=== PATIENT | male | born 1985 | race American Indian/Alaskan Native ===

== ENCOUNTER 2016-07-04 23:56 | Inpatient (IN) | payer BC ==
[2016-07-05 00:38] VITALS: BMI 32.7
[2016-07-05] MEDS ORDERED: metroNIDAZOLE IV 500 mg/100 ml 100 ML IVPB STA (00:59)
[2016-07-05] MEDS ORDERED: Piperacill/Tazo 4.5gm in NS 100 ML IVPB STA (00:59)
--- NOTE | 2016-07-05 01:09 | ED PDOC ---
Arrival/HPI - General Chief Complaint: Fever Time Seen by Provider: 07/05/16 00:33 Historian: Patient - History of Present Illness Narrative History of Present Illness (Text): 07/05/16 01:00 Ash Drew is a 30 year old male, with a history of ALS, presents to the emergency department complaining of fever which developed tonight. Patient states that a peg tube was recently placed 6 days ago at [facility] and notes of pain to the surrounding area. Patient is still able to tolerate PO intake. Denies headache, dizziness, chest pain, nausea, vomiting , diarrhea, urinary symptoms or any other complaints at this time. Time/Duration: 4-6 hours Symptom Onset: Gradual Symptom Course: Unchanged Severity Level: Mild Activities at Onset: Light Context: Home Past Medical History - Provider Review Nursing Documentation Reviewed: Yes - Infectious Disease Hx of Infectious Diseases: None - Tetanus Immunization Tetanus Immunization: Unknown - Past Medical History Past Medical History: No Previous - Cardiac Hx Cardiac Disorders: No - Pulmonary Hx Respiratory Disorders: No - Neurological Hx Neurological Disorder: Yes Other/Comment: ALS - HEENT Hx HEENT Disorder: No - Renal Hx Renal Disorder: No - Endocrine/Metabolic Hx Endocrine Disorders: No - Hematological/Oncological Hx Blood Disorders: No - Integumentary Hx Dermatological Disorder: No - Musculoskeletal/Rheumatological Hx Musculoskeletal Disorders: No - Gastrointestinal Hx Gastrointestinal Disorders: No - Genitourinary/Gynecological Hx Genitourinary Disorders: No - Psychiatric Hx Psychophysiologic Disorder: No Hx Depression: No Hx Emotional Abuse: No Hx Physical Abuse: No Hx Substance Use: No - Past Surgical History Past Surgical History: No Previous - Anesthesia Hx Anesthesia: No - Suicidal Assessment Feels Threatened In Home Enviroment: No Family/Social History - Physician Review Nursing Documentation Reviewed: Yes Family/Social History: No Known Family HX Smoking Status: Never Smoked Hx Alcohol Use: No Hx Substance Use: No Hx Substance Use Treatment: No Allergies/Home Meds Allergies/Adverse Reactions: Allergies No Known Allergies Allergy (Verified 01/17/16 00:36) Home Medications: Home Meds Medication Instructions Recorded Confirmed Baclofen [Baclofen] 1 tab PO TID 01/17/16 01/17/16 Calcium 1 tab PO BID 07/05/16 07/05/16 Dextromethorphan HBr/Quinidine 1 tab PO BID 07/05/16 07/05/16 [Nuedexta 20-10 mg Capsule] Eliquis 1 tab PO BID 07/05/16 07/05/16 Fish Oil 1 tab PO BID 07/05/16 07/05/16 Magnesium 1 tab PO HS 07/05/16 07/05/16 Riluzole 1 tab PO BID 07/05/16 07/05/16 Vitamin B12 1 tab PO DAILY 07/05/16 07/05/16 Review of Systems - Physician Review All systems were reviewed & negative as marked: Yes - Review of Systems Constitutional: Fevers Respiratory: absent: SOB, Cough Cardiovascular: absent: Chest Pain Gastrointestinal: Abdominal Pain (pain around the peg tube ). absent: Diarrhea , Nausea, Vomiting Neurological: Normal. absent: Headache, Dizziness Psychiatric: Normal Physical Exam Vital Signs Reviewed: Yes Vital Signs Temp Pulse Resp BP Pulse Ox 07/05/16 03:47 100.4 F H 101 H 20 153/92 H 07/05/16 03:38 100.8 F H 102 H 28 H 125/76 100 07/05/16 02:40 101.9 F H 102 H 18 121/81 99 07/05/16 00:37 101.7 F H 110 H 18 121/91 H 98 Temperature: Febrile Blood Pressure: Normal Pulse: Tachycardic Respiratory Rate: Normal Appearance: Positive for: Non-Toxic Pain Distress: None Mental Status: Positive for: Alert and Oriented X 3 - Systems Exam Head: Present: Atraumatic, Normocephalic Pupils: Present: PERRL Extroacular Muscles: Present: EOMI Conjunctiva: Present: Normal Respiratory/Chest: Present: Clear to Auscultation, Good Air Exchange. No: Respiratory Distress, Accessory Muscle Use Cardiovascular: Present: Regular Rate and Rhythm, Normal S1, S2. No: Murmurs Abdomen: Present: Tenderness (tender around the peg tube), Normal Bowel Sounds. No: Distention, Peritoneal Signs Upper Extremity: Present: Normal Inspection. No: Cyanosis, Edema Lower Extremity: Present: Normal Inspection. No: Edema Neurological: Present: GCS=15, CN II-XII Intact, Speech Normal Skin: Present: Warm, Dry, Normal Color. No: Rashes Psychiatric: Present: Alert, Oriented x 3, Normal Insight, Normal Concentration Medical Decision Making ED Course and Treatment: 07/05/16 01:12 Impression: A 30 year old male who presents to the emergency department complaining of fever and pain around the peg tube. Plan: -- Labs -- CT abdomen pelvis -- Chest X-ray -- Tylenol -- Zosyn -- Blood culture -- Urine culture -- Urinalysis -- Reassess and disposition Progress Notes: 07/05/16 03:14 EKG reviewed by me: Sinus Tachycardia @ 101 bpm. Normal [place]. Normal interval. CT abdomen pelvis results reviewed Impression: No acute findings. 07/05/16 04:[address] Rachel who is aware and agrees with the plan to admit patient to hospital. Accepts patient under her service. - Lab Interpretations Microbiology Results: Microbiology Results 07/05/16 01:50 Blood Blood Culture - Preliminary NO GROWTH AFTER 4 DAYS 07/05/16 01:20 Blood Blood Culture - Preliminary NO GROWTH AFTER 4 DAYS 07/05/16 02:01 Urine,Clean Catch Urine Culture - Final No Growth (<1,000 CFU/ML) Lab Results: 07/05/16 01:50 07/05/16 01:50 Lab Results 07/05/16 02:01: Urine Color Yellow, Urine Appearance Sl cloudy, Urine pH 6.0, Ur Specific [place] 1.025, Urine Protein 30 H, Urine Glucose (UA) Negative, Urine Ketones Negative, Urine Blood Trace-intact H, Urine Nitrate Negative, Urine Bilirubin Negative, Urine Urobilinogen 0.2, Ur Leukocyte Esterase Negative , Urine RBC 1 - 3, Urine WBC 0 - 2, Ur Epithelial Cells 0 - 2, Urine Bacteria Rare 07/05/16 01:50: WBC 13.4 H, RBC 5.86, Hgb 13.9 L, Hct 42.0, MCV 71.7 L, MCH 23.7 L, MCHC 33.1, RDW 14.7 H, Plt Count 223, MPV 10.0, Gran % 78.6 H, Lymph % ( Auto) 14.7 L, [place] % (Auto) 6.4 H, Eos % (Auto) 0.2 L, Baso % (Auto) 0.1, Gran # 10.56 H, Lymph # 2.0, [place] # 0.9 H, Eos # 0.0, Baso # 0.02, PT 11.0, INR 1.02 , APTT 27.8, pO2 49, VBG pH 7.37, VBG pCO2 48.0, VBG HCO3 27.7, VBG Total CO2 29.2 H, VBG O2 Sat (Calc) 88.4 H, VBG Base Excess 1.7, VBG Potassium 4.3, Glucose 111 H, Lactate 2.2 H, FiO2 21.0, Sodium 138.0, Potassium 4.2, Chloride 103.0, Carbon Dioxide 25, Anion Gap 17, BUN 13, Creatinine 1.0, Est GFR ( Amer) > 60, Est GFR (Non-Af Amer) > 60, Random Glucose 109, Calcium 9.2 , Phosphorus 3.8, Magnesium 1.5 L, Total Bilirubin 0.8, AST 28, ALT 40, Alkaline Phosphatase 76, Total Protein 8.1, Albumin 4.3, Globulin 3.8, Albumin/ Globulin Ratio 1.1, Venous Blood Potassium 4.3 I have reviewed the lab results: Yes - RAD Interpretation Narrative RAD Interpretations (Text): EXAM: CT Abdomen and Pelvis Without Intravenous Contrast. FINDINGS: Lower thorax: No acute findings. ABDOMEN: Liver: No acute findings. Gallbladder and bile ducts: No acute findings. No calcified stones. No ductal dilation. Pancreas: No acute findings. No ductal dilation. Spleen: No acute findings. No splenomegaly. Adrenals: No acute findings. No mass. Kidneys and ureters: No acute findings. No obstructing stones. No hydronephrosis. Stomach and bowel: There is a percutaneous gastrostomy tube. No obstruction. No mucosal thickening. Appendix: No findings to suggest acute appendicitis. PELVIS: Bladder: No acute findings. No stones. Reproductive: No acute findings. ABDOMEN and PELVIS: Intraperitoneal space: No acute findings. No free air. No significant fluid collection. Bones/joints: No acute fracture. No dislocation. Soft tissues: No acute findings. Vasculature: No acute findings. No abdominal aortic aneurysm. Lymph nodes: No acute findings. No enlarged lymph nodes. IMPRESSION: No acute findings. Radiology Orders: 07/05/16 00:59 CHEST PORTABLE [RAD] Stat 07/05/16 01:04 ABD & PELVIS W/O PO OR IV CONT [CT] Stat Hospital Carrier: Radiologist - EKG Interpretation Interpreted by ED Physician: Yes Type: 12 lead EKG - Medication Orders Current Medication Orders: Discontinued Medications Acetaminophen (Tylenol 325mg Tab) 975 mg PO ONCE PRN PRN Reason: Fever >100.4 F Last Admin: 07/05/16 01:37 Dose: 975 MG MAR Pain/Vitals Document 07/05/16 01:37 OCS (Rec: 07/05/16 01:38 OCS [id number]) Pain Reassessment Is This A Pain ReAssessment? Yes Sleep Is patient sleeping during reassessment? No Presence of Pain Presence of Pain Yes Pain Scale Used Pain Scale Used Numeric Location Pain Location Body Site Abdomen Description Constant Intensity 4 Scale Used Numeric Acetaminophen (Tylenol 325mg Tab) 650 mg PO Q4H PRN PRN Reason: Fever >100.5 F Last Admin: 07/07/16 06:15 Dose: 650 MG MAR Pain/Vitals Document 07/07/16 06:15 [email or web address] (Rec: 07/07/16 06:16 [email or web address] [facility] [id number] ) Vitals Temperature (97.6 F-99.6 F) 100.4 F Temperature Source Oral Apixaban (Eliquis) 5 mg PO DAILY JEY Last Admin: 07/05/16 10:02 Dose: 5 MG Apixaban (Eliquis) 5 mg PO BID JEY PRN Reason: Protocol Last Admin: 07/06/16 17:39 Dose: 5 MG Baclofen (Lioresal) 10 mg PO TID JEY Last Admin: 07/09/16 11:00 Dose: 10 MG Cefpodoxime Proxetil (Vantin) 200 mg PO Q12 JEY PRN Reason: Protocol Stop: 07/14/16 22:01 Doxycycline Hyclate (Doryx) 100 mg PO Q12 JEY PRN Reason: Protocol Stop: 07/14/16 22:01 Metronidazole (Flagyl) 100 mls @ 100 mls/hr IVPB STAT STA PRN Reason: Protocol Stop: 07/05/16 01:58 Last Admin: 07/05/16 02:26 Dose: 100 MLS/HR eMAR Start Stop Document 07/05/16 02:26 OCS (Rec: 07/05/16 02:26 OCS [id number]) Intravenous Solution Start Date 07/05/16 Start Time 02:26 Piperacillin Sod/Tazobactam Sod (Zosyn 4.5 Gm In Ns 100ml) 100 mls @ 200 mls/ hr IVPB STAT STA PRN Reason: Protocol Stop: 07/05/16 01:28 Last Admin: 07/05/16 01:57 Dose: 200 MLS/HR eMAR Start Stop Document 07/05/16 01:57 OCS (Rec: 07/05/16 01:57 OCS [id number]) Intravenous Solution Start Date 07/05/16 Start Time 01:57 Sodium Chloride (Sodium Chloride 0.9%) 1,000 mls @ 100 mls/hr IV .Q10H STA Stop: 07/05/16 13:34 Last Admin: 07/05/16 04:37 Dose: 100 MLS/HR eMAR Start Stop Document 07/05/16 04:37 DC (Rec: 07/05/16 04:37 DC [id number]) Intravenous Solution Start Date 07/05/16 Start Time 04:15 Vancomycin HCl (Vancomycin 1gm) 250 mls @ 167 mls/hr IVPB Q12H JEY PRN Reason: Protocol Last Admin: 07/09/16 10:59 Dose: 167 MLS/HR eMAR Start Stop Document 07/09/16 10:59 DLL (Rec: 07/09/16 11:00 DLL [id number]) Intravenous Solution Start Date 07/09/16 Start Time 10:59 End Date 07/09/16 End time 12:30 Total Infusion Time 91 Piperacillin Sod/Tazobactam Sod (Zosyn 3.375 In Ns 100ml) 100 mls @ 200 mls/hr IVPB Q6 JEY PRN Reason: Protocol Stop: 07/12/16 12:01 Last Admin: 07/06/16 05:50 Dose: 200 MLS/HR eMAR Start Stop Document 07/06/16 05:50 [email or web address] (Rec: 07/06/16 05:50 [email or web address] [facility] [id number]) Intravenous Solution Start Date 07/06/16 Start Time 05:50 End Date 07/06/16 End time 06:20 Total Infusion Time 30 Ceftriaxone Sodium (Rocephin 1 Gram Ivpb) 100 mls @ 100 mls/hr IVPB DAILY JEY PRN Reason: Protocol Last Admin: 07/05/16 10:05 Dose: 100 MLS/HR eMAR Start Stop Document 07/05/16 10:05 ML (Rec: 07/05/16 10:05 ML [id number]) Intravenous Solution Start Date 07/05/16 Start Time 10:05 End Date 07/05/16 End time 11:00 Total Infusion Time 55 Magnesium Sulfate/Dextrose (Magnesium Sulfate 1 Gm/100 Ml D5w) 100 mls @ 100 mls/hr IV ONCE ONE Stop: 07/05/16 13:30 Last Admin: 07/05/16 13:58 Dose: 100 MLS/HR eMAR Start Stop Document 07/05/16 13:58 ML (Rec: 07/05/16 13:59 ML [id number]) Intravenous Solution Start Date 07/05/16 Start Time 13:59 End Date 07/05/16 End time 14:45 Total Infusion Time 46 Meropenem 1 gm/ Sodium (Chloride) 100 mls @ 100 mls/hr IVPB Q8 JEY PRN Reason: Protocol Stop: 07/13/16 09:31 Last Admin: 07/07/16 05:34 Dose: 100 MLS/HR eMAR Start Stop Document 07/07/16 05:34 [email or web address] (Rec: 07/07/16 05:34 [email or web address] [id number] ) Intravenous Solution Start Date 07/07/16 Start Time 05:34 End Date 07/07/16 End time 06:35 Total Infusion Time 61 Meropenem 1g/NS 100mL IVPB (Meropenem 1g/Ns 100ml Ivpb) 100 mls @ 100 mls/hr IVPB Q8 JEY PRN Reason: Protocol Stop: 07/13/16 09:31 Last Admin: 07/09/16 05:34 Dose: 100 MLS/HR eMAR Start Stop Document 07/09/16 05:34 SJM (Rec: 07/09/16 05:34 SJM [id number]) Intravenous Solution Start Date 07/09/16 Start Time 05:34 End Date 07/09/16 End time 06:34 Total Infusion Time 60 Ibuprofen (Motrin Tab) 400 mg PO ONCE STA Stop: 07/05/16 02:53 Last Admin: 07/05/16 03:06 Dose: 400 MG MAR Pain/Vitals Document 07/05/16 03:06 OCS (Rec: 07/05/16 03:06 OCS [id number]) Pain Reassessment Is This A Pain ReAssessment? Yes Sleep Is patient sleeping during reassessment? No Presence of Pain Presence of Pain Yes Pain Scale Used Pain Scale Used Numeric Re-Assess: MAR Pain/Vitals Document 07/05/16 04:06 ML (Rec: 07/05/16 09:33 ML [id number]) Pain Reassessment Is This A Pain ReAssessment? Yes Presence of Pain Presence of Pain No Ibuprofen (Motrin Tab) 400 mg PO Q8H [facility] Last Admin: 07/09/16 05:34 Dose: MAR Pain/Vitals Document 07/09/16 05:34 SJM (Rec: 07/09/16 05:34 SJM [id number]) Pain Reassessment Is This A Pain ReAssessment? No Sleep Is patient sleeping during reassessment? No Presence of Pain Presence of Pain No Magnesium Citrate (Citrate Of Mag) 300 ml PO ONCE ONE Stop: 07/06/16 18:31 Last Admin: 07/06/16 18:45 Dose: 300 ML Magnesium Citrate (Citrate Of Mag) 300 ml PO ONCE ONE Stop: 07/08/16 00:32 Last Admin: 07/08/16 01:00 Dose: 300 ML Methylnaltrexone [place] (Relistor) 8 mg SC ONCE ONE Stop: 07/07/16 20:34 Last Admin: 07/07/16 22:46 Dose: 8 MG Subcutaneous Administrations Document 07/07/16 22:46 JW (Rec: 07/07/16 22:46 [id number]) Injection Site MAR Injection Site Right Abdomen Charges for Administration # of Subcutaneous Administrations 1 Mupirocin (Bactroban Ointment) 0 gm TOP BID [facility] Last Admin: 07/09/16 11:00 Dose: 1 APPLIC Non-Formulary Medication (Calcium) 1 tab PO BID [facility] Last Admin: 07/09/16 11:01 Dose: Non-Formulary Medication (Fish Oil) 1 tab PO BID [facility] Last Admin: 07/09/16 11:01 Dose: Non-Formulary Medication (Vitamin B12) 1 tab PO DAILY [facility] Last Admin: 07/09/16 11:01 Dose: Oxycodone/Acetaminophen (Percocet 10/325 Mg Tab) 1 tab PO Q6H PRN PRN Reason: Pain, severe (8-10) Last Admin: 07/06/16 09:00 Dose: 1 TAB [facility] Pain Assessment Document 07/06/16 09:00 BIR (Rec: 07/06/16 09:52 BIR [id number]) Pain Reassessment Is this a pain reassessment? No Sleep Is patient sleeping during reassessment? No Presence of Pain Presence of Pain Yes Pantoprazole Sodium (Protonix Ec Tab) 40 mg PO BID [facility] Last Admin: 07/09/16 11:00 Dose: 40 MG Polyethylene Glycol (Miralax) 17 gm PO DAILY [facility] Last Admin: 07/09/16 11:00 Dose: 17 GM - [place] Statement The provider has reviewed the documentation as recorded by the Ilsa Rodriguez Provider Attestation: All medical record entries made by the Ilsa were at my direction and personally dictated by me. I have reviewed the chart and agree that the record accurately reflects my personal performance of the history, physical exam, medical decision making, and the department course for this patient. I have also personally directed, reviewed, and agree with the discharge instructions and disposition. Disposition/Present on Arrival - Present on Arrival Any Indicators Present on Arrival: No History of DVT/PE: No History of Uncontrolled Diabetes: No Urinary Catheter: No History of Decub. Ulcer: No History Surgical Site Infection Following: None - Disposition Have Diagnosis and Disposition been Completed?: Yes Diagnosis: Cellulitis of abdominal wall Disposition: HOSPITALIZED Disposition Time: 04:30 Condition: GOOD
[2016-07-05 02:03] LABS: ADD MANUAL DIFF? NO
[2016-07-05 02:05] LABS: BASO # 0.02 K/mm3 (0.0-2.0); BASO % 0.1 % (0.0-3.0); EOS % 0.2 % (1.5-5.0); GRAN # 10.56 (1.4-6.5); GRAN % 78.6 % (50.0-68.0); LYMPH % 14.7 % (22.0-35.0); MEAN CELL VOLUME 71.7 fL (80.0-105.0); MEAN CORPUSCULAR HEMOGLOBIN 23.7 pg (25.0-35.0); MEAN CORPUSCULAR HGB CONC 33.1 g/dl (31.0-37.0); MONO # 0.9 (0.1-0.6); MONO % 6.4 % (1.0-6.0); PLATELET COUNT 223 10^3/uL (120.0-450.0); RED CELL DISTRIBUTION WIDTH 14.7 % (11.5-14.5); WHITE BLOOD COUNT 13.4 10^3/ul (4.5-11.0)
[2016-07-05 02:08] LABS: VENOUS BLOOD GAS BASE EXCESS 1.7 mmol/L (0.0-2.0); VENOUS BLOOD PH 7.37 (7.32-7.43)
[2016-07-05 02:20] LABS: ALB/GLOB RATIO 1.1 (1.1-1.8); ALKALINE PHOSPHATASE 76 U/L (38-133); ALT/SGPT 40 U/L (7-56); AST/SGOT 28 U/L (15-59); BILIRUBIN,TOTAL 0.8 mg/dL (0.2-1.3); BLOOD UREA NITROGEN 13 mg/dL (7-21); CALCIUM 9.2 mg/dL (8.4-10.5); CARBON DIOXIDE 25 mmol/L (21-33); CHLORIDE 99 mmol/L (98-107); GFR AFRICAN-AMERICAN > 60; GLUCOSE,RANDOM 109 mg/dL (70-110); INR 1.02 (0.93-1.08); MAGNESIUM 1.5 mg/dL (1.7-2.2); PARTIAL THROMBOPLASTIN TIME 27.8 Seconds (23.7-30.8); PHOSPHOROUS 3.8 mg/dL (2.5-4.5); POTASSIUM 4.2 mmol/L (3.6-5.0); SODIUM 137 mmol/L (132-148); TOTAL PROTEIN 8.1 g/dL (5.8-8.3)
[2016-07-05 02:30] LABS: URINE BILIRUBIN NEGATIVE (NEGATIVE); URINE BLOOD TRACE-INTACT (NEGATIVE); URINE GLUCOSE (UA) NEGATIVE (NEGATIVE); URINE KETONE NEGATIVE (NEGATIVE); URINE LEUKOCYTE ESTERASE NEGATIVE Leu/uL (NEGATIVE); URINE PROTEIN 30 mg/dL (<30 mg/dL); URINE UROBILINOGEN 0.2 E.U./dL (<1 E.U./dL)
[2016-07-05 02:32] LABS: URINE APPEARANCE SL CLOUDY (CLEAR); URINE COLOR YELLOW (YELLOW)
[2016-07-05 02:57] LABS: URINE EPITHELIAL CELLS 0 - 2 /hpf (0-5)
[2016-07-05 02:58] LABS: URINE BACTERIA RARE (NEG); URINE WBC 0 - 2 /hpf (0-6)
[2016-07-05] MEDS ORDERED: Sodium Chloride 0.9% 1,000 ML IV STA (03:35)
--- NOTE | 2016-07-05 07:23 | RAD ---
HISTORY: Sepsis Patient COMPARISON: No prior. FINDINGS: LUNGS: No active pulmonary disease. PLEURA: No significant pleural effusion identified, no pneumothorax apparent. CARDIOVASCULAR: Normal. For projection OSSEOUS STRUCTURES: No significant abnormalities. VISUALIZED UPPER ABDOMEN: Normal. OTHER FINDINGS: None. IMPRESSION: No active disease.
[2016-07-05 07:46] LABS: VENOUS BLOOD GAS BASE EXCESS 2.5 mmol/L (0.0-2.0); VENOUS BLOOD PH 7.35 (7.32-7.43)
--- NOTE | 2016-07-05 09:00 | CARD ---
APPROVED REPORT EKG Measurement Heart [id number] <Conclusion> Sinus tachycardia Otherwise normal ECG
[2016-07-05] MEDS ORDERED: cefTRIAXone 1 gm 100 ML IVPB SCH (10:00)
[2016-07-05] MEDS: FISH OIL PO SCH ×2 (10:02→17:01)
[2016-07-05] MEDS: CALCIUM PO SCH ×2 (10:02→17:01)
[2016-07-05] MEDS: Vancomycin 1gm in NS 250ml 250 ML IVPB SCH ×2 (10:03→22:29)
[2016-07-05] MEDS: VITAMIN B12 PO SCH (10:05)
[2016-07-05] MEDS: Piperacillin/Tazobact 3.375 gm 100 ML IVPB SCH ×2 (11:36→17:20)
--- NOTE | 2016-07-05 12:10 | CT ---
PROCEDURE: CT Abdomen and Pelvis without intravenous contrast HISTORY: abd pain COMPARISON: None. TECHNIQUE: Technique. Contrast Dose: Radiation dose: Total exam DLP = 1429 mGy-cm. FINDINGS: LOWER THORAX: Minimal dependent atelectatic changes at both lung bases are present LIVER: Unremarkable. No gross lesion or ductal dilatation. GALLBLADDER AND BILE DUCTS: Unremarkable. PANCREAS: Unremarkable. No gross lesion or ductal dilatation. SPLEEN: Unremarkable. ADRENALS: Unremarkable. No mass. KIDNEYS AND URETERS: Unremarkable. No hydronephrosis. No solid mass. VASCULATURE: Unremarkable. No aortic aneurysm. BOWEL: Unremarkable. No obstruction. No gross mural thickening. APPENDIX: Unremarkable. Normal appendix. PERITONEUM: Unremarkable. No free fluid. No free air. LYMPH NODES: Unremarkable. No enlarged lymph nodes. BLADDER: Unremarkable. REPRODUCTIVE: Unremarkable. BONES: No acute fracture. OTHER FINDINGS: A percutaneous gastrostomy tip is in the antrum. There is asymmetrical left rectus muscle swelling surrounding the tube and central to left anterolateral subcutaneous reticulated edema with trace trace sliver like superficial perifascial fluid present. No drainable fluid collection is appreciated. No subcutaneous gas noted The appearance is consistent with a cellulitis. IMPRESSION: Percutaneous gastrostomy tip in antrum. Left anterolateral abdominal wall soft tissue changes consistent with a cellulitis/ postop changes/edema. No subcutaneous gas. No subcutaneous or intra abdominal drainable fluid collections suggested.
--- NOTE | 2016-07-05 13:11 | HP ---
HISTORY OF PRESENT ILLNESS: The patient is a 30-year-old obese male who came to Emergency Room [facility] of high-grade fever, not feeling well, generalized weakness. The patient's , who is by the [facility], states he was diagnosed with ALS almost 2 years ago and he is being treated in [facility]. Prophylactically, they had PEG placed last , almost 6 days ago. They have not been using except flushing but since yesterday they noticed some abdominal discomfort and fever, so he was brought to Emergency Room for further evaluation. No history of nausea, vomiting. No chest pain, n o shortness of breath. No urinary symptoms. PAST MEDICAL HISTORY: According to the who is by the bedside he was diagnosed 2 years ago with ALS and has been under their care. Other than that, he has no significant past medical history. ALLERGIES: He is not allergic to any medication. MEDICATIONS AT HOME: He is on B12, magnesium, fish oil. He is on Eliquis. He is on Nuedexta, calci um and baclofen. SOCIAL HISTORY: Denies smoking, drinking or alcohol use. REVIEW OF SYSTEMS: Significant for discomfort, induration and redness around the PEG site. PHYSICAL EXAMINATION: GENERAL: He is awake and alert, communicative. VITAL SIGNS: He has temperature of 101.7, pulse 110, respirations 18, blood pressure 121/91. This m orning, his temperature 98.8, pulse 89, respirations 18, blood pressure is 132/84. LUNGS: Bilateral good airflow, no rhonchi or crackle. HEART: S1, S2 audible. No murmur. ABDOMEN: Soft, has induration around his PEG site, more so on the left border, and palpable discomfo rt. NEUROLOGIC: He is awake and alert, communicative, able to communicate. No focal deficits. LABORATORY EXAM: WBC 13.4, hemoglobin 13.9, hematocrit 42, platelet of 223. PT 11.0, INR 1.02. Danielle gris: Sodium 137, potassium 4.2, chloride 99, CO2 of 25, BUN 13, creatinine 1.0, blood sugar of 10 9, magnesium 1.5. Urinalysis is unremarkable. He had CT scan of the abdomen and pelvis done that sh ows percutaneous gastrostomy, asymmetric left rectus muscle swelling surrounding the tube and left an terolateral subcutaneous reticulated edema with ____ like superficial ____ fluid present. No drainab le fluid collection is appreciated. ASSESSMENT: 1. Abdominal wall cellulitis. 2. History of amyotrophic lateral sclerosis with some slurred speech. 3. Leukocytosis. PLAN: We will continue patient on his baseline medication. He has been started on Rocephin. He is on vancomycin. He was evaluated by Dr. Vides and has been started on Zosyn. We will continue that. We will follow up his blood culture and urine culture. I discussed with the attending at [facility] and found about the situation. We will reevaluate patient in a.m. Camryn Rachel MD cc: [phone] TT: 07/05/2016 13:11:10 sn
--- NOTE | 2016-07-05 14:35 | CP.PCM.CON ---
History of Present Illness - History of Present Illness History of Present Illness: 30 year old male with PMH of Amyotrophic Lateral sclerosis, obesity with BMI 33 was brought in to [facility] because of fever which started yesterday. The patient is also complaining of some pain in the stomach, around the area of his newly-placed PEG tube. IT was placed 6 days ago at [facility]. He apparently had 2 days of soreness after the procedure but got better. He denies headache or dizziness, no rhinorrhea, no sore throat. He has occasional cough but not SOB, no chest pain, no bleeding from the PEG site, no diarrhea, no dysuria. Infectious Diseases consult is requested to further evaluate and manage. Review of Systems - Review of Systems All systems: reviewed and no additional remarkable complaints except (as per HPI ) Past Patient History - Infectious Disease Hx of Infectious Diseases: None - Tetanus Immunizations Tetanus Immunization: Unknown - Past Medical History & Family History Past Medical History?: Yes Past Family History: Reviewed and not pertinent - Past Social History Smoking Status: Never Smoked Alcohol: None Drugs: Denies - CARDIAC Hx Cardiac Disorders: No - PULMONARY Hx Respiratory Disorders: No - NEUROLOGICAL Hx Neurological Disorder: Yes Other/Comment: ALS - HEENT Hx HEENT Problems: No - RENAL Hx Chronic Kidney Disease: No - ENDOCRINE/METABOLIC Hx Endocrine Disorders: No - HEMATOLOGICAL/ONCOLOGICAL Hx Blood Disorders: No - INTEGUMENTARY Hx Dermatological Problems: No - MUSCULOSKELETAL/RHEUMATOLOGICAL Hx Musculoskeletal Disorders: No - GASTROINTESTINAL Hx Gastrointestinal Disorders: No - GENITOURINARY/GYNECOLOGICAL Hx Genitourinary Disorders: No - PSYCHIATRIC Hx Psychophysiologic Disorder: No Hx Depression: No Hx Emotional Abuse: No Hx Physical Abuse: No Hx Substance Use: No - SURGICAL HISTORY Hx Surgeries: No - ANESTHESIA Hx Anesthesia: No Meds Allergies/Adverse Reactions: Allergies Allergy/AdvReac Type Severity Reaction Status Date / Time No Known Allergies Allergy Verified 01/17/16 00:36 - Medications Medications: Current Medications Acetaminophen (Tylenol 325mg Tab) 650 mg PO Q4H PRN PRN Reason: Fever >100.5 F Baclofen (Lioresal) 10 mg PO TID JEY Sodium Chloride (Sodium Chloride 0.9%) 1,000 mls @ 100 mls/hr IV .Q10H STA Stop: 07/05/16 13:34 Last Admin: 07/05/16 04:37 Dose: 100 mls/hr Vancomycin HCl (Vancomycin 1gm) 250 mls @ 167 mls/hr IVPB Q12H JEY PRN Reason: Protocol Non-Formulary Medication (Calcium) 1 tab PO BID JEY Non-Formulary Medication (Eliquis) 5 mg PO DAILY JEY Non-Formulary Medication (Fish Oil) 1 tab PO BID JEY Non-Formulary Medication (Vitamin B12) 1 tab PO DAILY JEY Physical Exam - Constitutional Appears: Non-toxic, No Acute Distress - Head Exam Head Exam: NORMAL INSPECTION - ENT Exam ENT Exam: Mucous Membranes Moist, Normal Oropharynx - Neck Exam Neck exam: Negative for: Lymphadenopathy, Meningismus - Respiratory Exam Respiratory Exam: Decreased Breath Sounds - Cardiovascular Exam Cardiovascular Exam: +S1, +S2 - GI/Abdominal Exam GI & Abdominal Exam: Soft Additional comments: PEG site with some induration around the PEG site with tenderness on palpation Results - Vital Signs Recent Vital Signs: Last Vital Signs Temp 98.8 F 07/05/16 06:00 Pulse 89 07/05/16 06:00 Resp 18 07/05/16 06:00 BP 132/84 07/05/16 06:00 Pulse Ox 99 07/05/16 06:00 - Labs Result Diagrams: 07/05/16 01:50 07/05/16 01:50 Labs: Laboratory Results - last 24 hr 07/05/16 07:00 pO2 45 VBG pH 7.35 VBG pCO2 53.0 VBG HCO3 29.3 H VBG Total CO2 30.9 H VBG O2 Sat (Calc) 84.6 H VBG Base Excess 2.5 H VBG Potassium 4.0 Sodium 138.0 Chloride 104.0 Glucose 101 Lactate 1.5 FiO2 21.0 Venous Blood Potassium 4.0 Assessment & Plan - Assessment and Plan (Free Text) Plan: Assessment Sepsis secondary to PEG site cellulitis in a patient with recent insertion of PEG Amyotrophic Lateral sclerosis obesity with BMI 33 Plan Started patient on Vancomycin and Zosyn pending blood cx; will monitor clinical response Will follow clinically
[2016-07-06] MEDS: Piperacillin/Tazobact 3.375 gm 100 ML IVPB SCH ×2 (00:27→05:50)
[2016-07-06] MEDS ORDERED: Oxycodone/Acetaminophen 10/325 mg Tab PO PRN (08:29)
[2016-07-06] MEDS: CALCIUM PO SCH ×2 (09:50→17:39)
[2016-07-06] MEDS: FISH OIL PO SCH ×2 (09:51→17:40)
[2016-07-06] MEDS: Vancomycin 1gm in NS 250ml 250 ML IVPB SCH ×2 (09:54→21:37)
[2016-07-06] MEDS: VITAMIN B12 PO SCH (09:55)
[2016-07-06 10:09] LABS: ADD MANUAL DIFF? NO
[2016-07-06 10:16] LABS: BASO # 0.02 K/mm3 (0.0-2.0); BASO % 0.1 % (0.0-3.0); EOS % 0.2 % (1.5-5.0); GRAN # 14.25 (1.4-6.5); GRAN % 83.2 % (50.0-68.0); HEMATOCRIT 42.1 % (42.0-52.0); LYMPH # 1.5 (1.2-3.4); LYMPH % 8.8 % (22.0-35.0); MEAN CELL VOLUME 70.8 fL (80.0-105.0); MEAN CORPUSCULAR HEMOGLOBIN 23.5 pg (25.0-35.0); MEAN CORPUSCULAR HGB CONC 33.3 g/dl (31.0-37.0); MONO # 1.3 (0.1-0.6); MONO % 7.7 % (1.0-6.0); PLATELET COUNT 222 10^3/uL (120.0-450.0); RED CELL DISTRIBUTION WIDTH 14.7 % (11.5-14.5); WHITE BLOOD COUNT 17.1 10^3/ul (4.5-11.0)
[2016-07-06 10:27] LABS: ALB/GLOB RATIO 0.9 (1.1-1.8); ALKALINE PHOSPHATASE 81 U/L (38-133); ALT/SGPT 26 U/L (7-56); AST/SGOT 24 U/L (15-59); BLOOD UREA NITROGEN 10 mg/dL (7-21); CALCIUM 9.3 mg/dL (8.4-10.5); CARBON DIOXIDE 26 mmol/L (21-33); CHLORIDE 99 mmol/L (95-110); GFR AFRICAN-AMERICAN > 60; GLUCOSE,RANDOM 113 mg/dL (70-110); MAGNESIUM 1.9 mg/dL (1.7-2.2); PHOSPHOROUS 4.4 mg/dL (2.5-4.5); SODIUM 138 mmol/L (132-148); TOTAL PROTEIN 8.3 g/dL (5.8-8.3)
[2016-07-06] MEDS: Meropenem 1 GM in Sodium Chloride 0.9% 100 ML IVPB SCH ×2 (12:00→23:24)
--- NOTE | 2016-07-06 13:10 | PN ---
DATE: 07/06/2016 SUBJECTIVE: The patient is a 30-year-old seen and examined, lying in bed, seems to be comfortable, n ot in any distress. PHYSICAL EXAMINATION: VITAL SIGNS: The patient has a temperature of 102.0 this morning around 4:00 and this morning was 99 .2, pulse 105, respirations 20, blood pressure 118/78. LUNGS: Bilateral fair airflow, no rhonchi or crackle. HEART: S1, S2 audible. ABDOMEN: Soft. He has induration around his PEG, more so on the left border. NEUROLOGIC: He is awake and alert, communicative. Moving all extremities. LABORATORY: WBC 17.1, hemoglobin 14, hematocrit 42, platelets 222. Chemistry: Sodium 138, potassiu m 4.0, chloride 99, CO2 26, BUN 10, creatinine 1.2, blood sugar of 113. His blood culture and urine cultures are negative. ASSESSMENT: 1. Abdominal wall cellulitis, status post percutaneous endoscopic gastrostomy placement. 2. History of amyotrophic lateral sclerosis. 3. Leukocytosis. 4. Morbid obesity. PLAN: We will continue patient on Eliquis. Continue on meropenem and vancomycin q. 12. Will follow up CBC in a.m. Camryn Rachel MD cc: [phone] TT: 07/06/2016 13:10:19 Confirmation # [id number] Dictation # [id number] mame
[2016-07-06] MEDS: Pantoprazole 40 mg EC Tab PO SCH ×2 (13:45→17:40)
--- NOTE | 2016-07-06 15:26 | CP.PCM.CON ---
<Nicolle Luther - Last Filed: 07/06/16 15:15> History of Present Illness - History of Present Illness History of Present Illness: General Surgery Dr. Beckett HPI: 30 y/o M w/ PMHx of ALS and PE presented to the ED w/ CC of fever and abd pain s/p PEG placement at [facility]. PEG was placed 6 days ago as a preemptive measure. Pt reports flushing tube daily but not currently using the PEG. Pt is febrile but denies N/V, D/C, CP, SOB. PMHx: ALS, PE, obesity Meds: reviewed in chart NKDA PSH: PEG placement SHx: denies Tobacco, EtOH, drug use FHx: unknown Review of Systems - Review of Systems All systems: reviewed and no additional remarkable complaints except (that which stated in HPI) Past Patient History - Infectious Disease Hx of Infectious Diseases: None - Tetanus Immunizations Tetanus Immunization: Unknown - Past Medical History & Family History Past Medical History?: Yes Past Family History: Reviewed and not pertinent - Past Social History Smoking Status: Never Smoked Alcohol: None Drugs: Denies - CARDIAC Hx Cardiac Disorders: No - PULMONARY Hx Respiratory Disorders: No - NEUROLOGICAL Hx Neurological Disorder: Yes Other/Comment: ALS - HEENT Hx HEENT Problems: No - RENAL Hx Chronic Kidney Disease: No - ENDOCRINE/METABOLIC Hx Endocrine Disorders: No - HEMATOLOGICAL/ONCOLOGICAL Hx Blood Disorders: No - INTEGUMENTARY Hx Dermatological Problems: No - MUSCULOSKELETAL/RHEUMATOLOGICAL Hx Musculoskeletal Disorders: No - GASTROINTESTINAL Hx Gastrointestinal Disorders: No - GENITOURINARY/GYNECOLOGICAL Hx Genitourinary Disorders: No - PSYCHIATRIC Hx Psychophysiologic Disorder: No Hx Depression: No Hx Emotional Abuse: No Hx Physical Abuse: No Hx Substance Use: No - SURGICAL HISTORY Hx Surgeries: No - ANESTHESIA Hx Anesthesia: No Meds Allergies/Adverse Reactions: Allergies Allergy/AdvReac Type Severity Reaction Status Date / Time No Known Allergies Allergy Verified 01/17/16 00:36 - Medications Medications: Current Medications Acetaminophen (Tylenol 325mg Tab) 650 mg PO Q4H PRN PRN Reason: Fever >100.5 F Last Admin: 07/05/16 15:45 Dose: 650 mg Apixaban (Eliquis) 5 mg PO BID JEY PRN Reason: Protocol Last Admin: 07/06/16 09:51 Dose: 5 mg Baclofen (Lioresal) 10 mg PO TID JEY Last Admin: 07/06/16 13:45 Dose: 10 mg Vancomycin HCl (Vancomycin 1gm) 250 mls @ 167 mls/hr IVPB Q12H JEY PRN Reason: Protocol Last Admin: 07/06/16 09:54 Dose: 167 mls/hr Meropenem 1 gm/ Sodium (Chloride) 100 mls @ 100 mls/hr IVPB Q8 JEY PRN Reason: Protocol Stop: 07/13/16 09:31 Last Admin: 07/06/16 12:00 Dose: 100 mls/hr Non-Formulary Medication (Calcium) 1 tab PO BID [facility] Last Admin: 07/06/16 09:50 Dose: Not Given Non-Formulary Medication (Fish Oil) 1 tab PO BID [facility] Last Admin: 07/06/16 09:51 Dose: Not Given Non-Formulary Medication (Vitamin B12) 1 tab PO DAILY [facility] Last Admin: 07/06/16 09:55 Dose: Not Given Oxycodone/Acetaminophen (Percocet 10/325 Mg Tab) 1 tab PO Q6H PRN PRN Reason: Pain, severe (8-10) Last Admin: 07/06/16 09:00 Dose: 1 tab Pantoprazole Sodium (Protonix Ec Tab) 40 mg PO BID [facility] Last Admin: 07/06/16 13:45 Dose: 40 mg Physical Exam - Constitutional Appears: Non-toxic, No Acute Distress - Head Exam Head Exam: NORMAL INSPECTION - Eye Exam Eye Exam: Normal appearance - ENT Exam ENT Exam: Mucous Membranes Moist - Respiratory Exam Respiratory Exam: NORMAL BREATHING PATTERN. absent: Accessory Muscle Use, Respiratory Distress - GI/Abdominal Exam GI & Abdominal Exam: Soft, Tenderness (localized to PEG site). absent: Distended, Guarding, Rebound Additional comments: (+) erythema and edema surrounding PEG (-) drainage/discharge present - Neurological Exam Neurological exam: Alert, Oriented x3 - Psychiatric Exam Psychiatric exam: Normal Affect, Normal Mood - Skin Skin Exam: Dry, Intact, Warm Additional comments: multiple tattoos present Results - Vital Signs Recent Vital Signs: Last Vital Signs Temp 99.2 F 07/05/16 16:00 Pulse 105 H 07/05/16 16:00 Resp 20 07/05/16 16:00 BP 118/78 07/05/16 16:00 Pulse Ox 98 07/05/16 16:00 - Labs Result Diagrams: 07/06/16 10:00 07/06/16 10:00 Labs: Laboratory Results - last 24 hr 07/05/16 07/06/16 06:45 10:00 WBC 17.1 H D RBC 5.95 Hgb 14.0 Hct 42.1 MCV 70.8 L MCH 23.5 L MCHC 33.3 RDW 14.7 H Plt Count 222 MPV 10.0 Gran % 83.2 H Lymph % (Auto) 8.8 L Dupage % (Auto) 7.7 H Eos % (Auto) 0.2 L Baso % (Auto) 0.1 Gran # 14.25 H Lymph # 1.5 Dupage # 1.3 H Eos # 0.0 Baso # 0.02 Sodium 138 Potassium 4.0 Chloride 99 Carbon Dioxide 26 Anion Gap 17 BUN 10 Creatinine 1.2 Est GFR ( Amer) > 60 Est GFR (Non-Af Amer) > 60 Random Glucose 113 H Calcium 9.3 Phosphorus 4.4 Magnesium 1.9 Total Bilirubin 1.0 AST 24 ALT 26 Alkaline Phosphatase 81 Total Protein 8.3 Albumin 4.0 Globulin 4.3 Albumin/Globulin Ratio 0.9 L Procalcitonin 0.06 L - Imaging and Cardiology CT scan - abdomen Status: Image reviewed by me, Report reviewed by me Assessment & Plan - Assessment and Plan (Free Text) Assessment: 30 y/o M w/ cellulitis 2/2 PEG placement POD#6 @[facility] - cont Abx - Protonix BID - cont medical management - no surgical intervention at this time. Pt seen and discussed w/ Dr. Sujit Luther DO PGY1 <Victor M Beckett - Last Filed: 07/06/16 17:48> Meds - Medications Medications: Current Medications Acetaminophen (Tylenol 325mg Tab) 650 mg PO Q4H PRN PRN Reason: Fever >100.5 F Last Admin: 07/06/16 16:58 Dose: 650 mg Apixaban (Eliquis) 5 mg PO BID JEY PRN Reason: Protocol Last Admin: 07/06/16 17:39 Dose: 5 mg Baclofen (Lioresal) 10 mg PO TID JEY Last Admin: 07/06/16 17:40 Dose: 10 mg Vancomycin HCl (Vancomycin 1gm) 250 mls @ 167 mls/hr IVPB Q12H JEY PRN Reason: Protocol Last Admin: 07/06/16 09:54 Dose: 167 mls/hr Meropenem 1 gm/ Sodium (Chloride) 100 mls @ 100 mls/hr IVPB Q8 JEY PRN Reason: Protocol Stop: 07/13/16 09:31 Last Admin: 07/06/16 12:00 Dose: 100 mls/hr Non-Formulary Medication (Calcium) 1 tab PO BID [facility] Last Admin: 07/06/16 17:39 Dose: Not Given Non-Formulary Medication (Fish Oil) 1 tab PO BID JEY Last Admin: 07/06/16 17:40 Dose: Not Given Non-Formulary Medication (Vitamin B12) 1 tab PO DAILY [facility] Last Admin: 07/06/16 09:55 Dose: Not Given Oxycodone/Acetaminophen (Percocet 10/325 Mg Tab) 1 tab PO Q6H PRN PRN Reason: Pain, severe (8-10) Last Admin: 07/06/16 09:00 Dose: 1 tab Pantoprazole Sodium (Protonix Ec Tab) 40 mg PO BID [facility] Last Admin: 07/06/16 17:40 Dose: 40 mg Results - Vital Signs Recent Vital Signs: Last Vital Signs Temp 98.2 F 07/06/16 16:00 Pulse 106 H 07/06/16 16:00 Resp 20 07/06/16 16:00 BP 135/90 07/06/16 16:00 Pulse Ox 98 07/06/16 16:00 - Labs Result Diagrams: 07/06/16 10:00 07/06/16 10:00 Labs: Laboratory Results - last 24 hr 07/06/16 10:00 WBC 17.1 H D RBC 5.95 Hgb 14.0 Hct 42.1 MCV 70.8 L MCH 23.5 L MCHC 33.3 RDW 14.7 H Plt Count 222 MPV 10.0 Gran % 83.2 H Lymph % (Auto) 8.8 L Dupage % (Auto) 7.7 H Eos % (Auto) 0.2 L Baso % (Auto) 0.1 Gran # 14.25 H Lymph # 1.5 Dupage # 1.3 H Eos # 0.0 Baso # 0.02 Sodium 138 Potassium 4.0 Chloride 99 Carbon Dioxide 26 Anion Gap 17 BUN 10 Creatinine 1.2 Est GFR ( Amer) > 60 Est GFR (Non-Af Amer) > 60 Random Glucose 113 H Calcium 9.3 Phosphorus 4.4 Magnesium 1.9 Total Bilirubin 1.0 AST 24 ALT 26 Alkaline Phosphatase 81 Total Protein 8.3 Albumin 4.0 Globulin 4.3 Albumin/Globulin Ratio 0.9 L Assessment & Plan - Assessment and Plan (Free Text) Assessment: Dx: Extensive phlegmon-cellulitis post PEG ALS Pulm embolism(anticoagulation-Eliquis) Bed ridden/Extremity contractures This consultation done under my direct supervision Zacarias Beckett MD FACS
--- NOTE | 2016-07-06 17:01 | CP.PCM.PN ---
Subjective - Date & Time of Evaluation Date of Evaluation: 07/06/16 Time of Evaluation: 10:05 - Subjective Subjective: Comfortable in bed, not in distress, less pain in the abdomen; still having fevers. Objective - Vital Signs/Intake and Output Vital Signs (last 24 hours): Temp Pulse Resp BP Pulse Ox 99.2 F 105 H 20 118/78 98 07/05/16 16:00 07/05/16 16:00 07/05/16 16:00 07/05/16 16:00 07/05/16 16:00 Intake and Output: 07/06/16 07/06/16 06:59 18:59 Intake Total 1500 Output Total 1000 Balance 500 - Medications Medications: Current Medications Acetaminophen (Tylenol 325mg Tab) 650 mg PO Q4H PRN PRN Reason: Fever >100.5 F Last Admin: 07/05/16 15:45 Dose: 650 mg Apixaban (Eliquis) 5 mg PO BID JEY PRN Reason: Protocol Last Admin: 07/05/16 17:42 Dose: 5 mg Baclofen (Lioresal) 10 mg PO TID [facility] Last Admin: 07/05/16 17:20 Dose: 10 mg Vancomycin HCl (Vancomycin 1gm) 250 mls @ 167 mls/hr IVPB Q12H JEY PRN Reason: Protocol Last Admin: 07/05/16 22:29 Dose: 167 mls/hr Piperacillin Sod/Tazobactam Sod (Zosyn 3.375 In Ns 100ml) 100 mls @ 200 mls/hr IVPB Q6 JEY PRN Reason: Protocol Stop: 07/12/16 12:01 Last Admin: 07/06/16 05:50 Dose: 200 mls/hr Non-Formulary Medication (Calcium) 1 tab PO BID [facility] Last Admin: 07/05/16 17:01 Dose: Not Given Non-Formulary Medication (Fish Oil) 1 tab PO BID [facility] Last Admin: 07/05/16 17:01 Dose: Not Given Non-Formulary Medication (Vitamin B12) 1 tab PO DAILY [facility] Last Admin: 07/05/16 10:05 Dose: Not Given Oxycodone/Acetaminophen (Percocet 10/325 Mg Tab) 1 tab PO Q6H PRN PRN Reason: Pain, severe (8-10) - Labs Labs: PT 11.0 Seconds (9.9-11.8) 07/05/16 01:50 INR 1.02 (0.93-1.08) 07/05/16 01:50 APTT 27.8 Seconds (23.7-30.8) 07/05/16 01:50 - Constitutional Appears: Non-toxic, No Acute Distress - Head Exam Head Exam: NORMAL INSPECTION - ENT Exam ENT Exam: Mucous Membranes Moist - Neck Exam Neck Exam: absent: Lymphadenopathy, Meningismus - Respiratory Exam Respiratory Exam: Decreased Breath Sounds - Cardiovascular Exam Cardiovascular Exam: +S1, +S2 - GI/Abdominal Exam GI & Abdominal Exam: Soft, Tenderness (mild, around the PEG site area with some induration) Assessment and Plan - Assessment and Plan (Free Text) Plan: Assessment Sepsis secondary to PEG site cellulitis in a patient with recent insertion of PEG Amyotrophic Lateral sclerosis obesity with BMI 33 Plan continue Vancomycin and Zosyn (day 2) pending blood cx (negative so far); will continue to monitor clinical response Discussed with Dr. Beckett (surgery) Will follow clinically
--- NOTE | 2016-07-06 17:50 | CP.PCM.PCO ---
Physician Communication Note - Physician Communication Note Physician Communication Note: Holding Eliquis-No Immediate need for surgery now!
[2016-07-06] MEDS ORDERED: Magnesium Citrate Oral SOL (300 ml) PO ONE (18:30)
[2016-07-07] MEDS: Meropenem 1 GM in Sodium Chloride 0.9% 100 ML IVPB SCH (05:34)
[2016-07-07 07:43] LABS: ADD MANUAL DIFF? NO
[2016-07-07 07:46] LABS: BASO # 0.01 K/mm3 (0.0-2.0); BASO % 0.1 % (0.0-3.0); EOS # 0.2 (0.0-0.7); EOS % 1.2 % (1.5-5.0); GRAN # 10.54 (1.4-6.5); GRAN % 83.7 % (50.0-68.0); HEMATOCRIT 40.6 % (42.0-52.0); LYMPH # 1.3 (1.2-3.4); LYMPH % 10.3 % (22.0-35.0); MEAN CELL VOLUME 70.6 fL (80.0-105.0); MEAN CORPUSCULAR HEMOGLOBIN 23.7 pg (25.0-35.0); MEAN CORPUSCULAR HGB CONC 33.5 g/dl (31.0-37.0); MEAN PLATELET VOLUME 10.1 fl (7.0-11.0); MONO # 0.6 (0.1-0.6); MONO % 4.7 % (1.0-6.0); PLATELET COUNT 243 10^3/uL (120.0-450.0); RED CELL DISTRIBUTION WIDTH 14.6 % (11.5-14.5); WHITE BLOOD COUNT 12.6 10^3/ul (4.5-11.0)
[2016-07-07 07:55] LABS: ALB/GLOB RATIO 0.9 (1.1-1.8); ALKALINE PHOSPHATASE 84 U/L (38-133); ALT/SGPT 23 U/L (7-56); AST/SGOT 22 U/L (15-59); BILIRUBIN,TOTAL 1.1 mg/dL (0.2-1.3); BLOOD UREA NITROGEN 11 mg/dL (7-21); CALCIUM 9.1 mg/dL (8.4-10.5); CARBON DIOXIDE 25 mmol/L (21-33); CHLORIDE 101 mmol/L (98-107); GFR AFRICAN-AMERICAN > 60; GLUCOSE,RANDOM 116 mg/dL (70-110); POTASSIUM 4.1 mmol/L (3.6-5.0); SODIUM 138 mmol/L (132-148)
--- NOTE | 2016-07-07 09:25 | CP.PCM.PN ---
<Nicolle Luther - Last Filed: 07/07/16 09:26> Subjective - Date & Time of Evaluation Date of Evaluation: 07/07/16 Time of Evaluation: 09:23 - Subjective Subjective: General Surgery Dr. Beckett Pt S&E @bedside. febrile overnight w/ Tm 100.4F. Pt admits to F/C overnight. Objective - Vital Signs/Intake and Output Vital Signs (last 24 hours): Temp Pulse Resp BP Pulse Ox 100.4 F H 77 19 135/82 93 L 07/07/16 08:14 07/07/16 08:14 07/07/16 08:14 07/07/16 08:14 07/07/16 08:14 Intake and Output: 07/07/16 07/07/16 06:59 18:59 Intake Total 0 Output Total 1050 Balance -1050 - Medications Medications: Current Medications Acetaminophen (Tylenol 325mg Tab) 650 mg PO Q4H PRN PRN Reason: Fever >100.5 F Last Admin: 07/07/16 06:15 Dose: 650 mg Apixaban (Eliquis) 5 mg PO BID JEY PRN Reason: Protocol Last Admin: 07/06/16 17:39 Dose: 5 mg Baclofen (Lioresal) 10 mg PO TID JEY Last Admin: 07/06/16 17:40 Dose: 10 mg Vancomycin HCl (Vancomycin 1gm) 250 mls @ 167 mls/hr IVPB Q12H JEY PRN Reason: Protocol Last Admin: 07/06/16 21:37 Dose: 167 mls/hr Meropenem 1g/NS 100mL IVPB (Meropenem 1g/Ns 100ml Ivpb) 100 mls @ 100 mls/hr IVPB Q8 JEY PRN Reason: Protocol Stop: 07/13/16 09:31 Non-Formulary Medication (Calcium) 1 tab PO BID [facility] Last Admin: 07/06/16 17:39 Dose: Not Given Non-Formulary Medication (Fish Oil) 1 tab PO BID [facility] Last Admin: 07/06/16 17:40 Dose: Not Given Non-Formulary Medication (Vitamin B12) 1 tab PO DAILY [facility] Last Admin: 07/06/16 09:55 Dose: Not Given Oxycodone/Acetaminophen (Percocet 10/325 Mg Tab) 1 tab PO Q6H PRN PRN Reason: Pain, severe (8-10) Last Admin: 07/06/16 09:00 Dose: 1 tab Pantoprazole Sodium (Protonix Ec Tab) 40 mg PO BID JEY Last Admin: 07/06/16 17:40 Dose: 40 mg Polyethylene Glycol (Miralax) 17 gm PO DAILY JEY - Labs Labs: 07/07/16 07:30 07/07/16 07:30 Laboratory Tests 07/07/16 07:30 Calcium 9.1 Total Bilirubin 1.1 AST 22 ALT 23 Alkaline Phosphatase 84 Total Protein 8.0 Albumin 3.9 Microbiology 07/05/16 02:01 Urine,Clean Catch Urine Culture - Final No Growth (<1,000 CFU/ML) 07/05/16 01:50 Blood Blood Culture - Preliminary 07/05/16 01:50 Blood NO GROWTH AFTER 48 HOURS 07/05/16 01:20 Blood Blood Culture - Preliminary 07/05/16 01:20 Blood NO GROWTH AFTER 48 HOURS - Constitutional Appears: Non-toxic, No Acute Distress - Head Exam Head Exam: NORMAL INSPECTION - Eye Exam Eye Exam: Normal appearance - ENT Exam ENT Exam: Mucous Membranes Moist - Respiratory Exam Respiratory Exam: NORMAL BREATHING PATTERN. absent: Accessory Muscle Use, Respiratory Distress - GI/Abdominal Exam GI & Abdominal Exam: Soft, Tenderness (surrounding PEG site). absent: Distended Additional comments: (+) erythema and edema surrounding PEG (-) drainage/discharge present - Extremities Exam Additional comments: contractures present UE and LE B/L - Neurological Exam Neurological Exam: Alert, Awake, Oriented x3 - Psychiatric Exam Psychiatric exam: Normal Affect, Normal Mood - Skin Skin Exam: Dry, Intact, Warm Additional comments: multiple tattoos Assessment and Plan - Assessment and Plan (Free Text) Assessment: 30 y/o M w/ cellulitis 2/2 PEG [facility] - cont Abx per ID - cont Protonix BID - cont medical management per Primary - no surgical intervention at this time. Pt discussed w/ Dr. Sujit Luther DO PGY1 <Victor M Beckett - Last Filed: 07/08/16 04:29> Objective - Vital Signs/Intake and Output Vital Signs (last 24 hours): Temp Pulse Resp BP Pulse Ox 98.7 F 86 20 128/78 99 07/08/16 01:59 07/07/16 16:00 07/07/16 16:00 07/07/16 16:00 07/07/16 16:00 Intake and Output: 07/07/16 07/08/16 18:59 06:59 Intake Total 720 900 Output Total 300 900 Balance 420 0 - Medications Medications: Current Medications Acetaminophen (Tylenol 325mg Tab) 650 mg PO Q4H PRN PRN Reason: Fever >100.5 F Last Admin: 07/07/16 06:15 Dose: 650 mg Apixaban (Eliquis) 5 mg PO BID JEY PRN Reason: Protocol Last Admin: 07/06/16 17:39 Dose: 5 mg Baclofen (Lioresal) 10 mg PO TID [facility] Last Admin: 07/07/16 17:12 Dose: 10 mg Vancomycin HCl (Vancomycin 1gm) 250 mls @ 167 mls/hr IVPB Q12H JEY PRN Reason: Protocol Last Admin: 07/07/16 22:48 Dose: 167 mls/hr Meropenem 1g/NS 100mL IVPB (Meropenem 1g/Ns 100ml Ivpb) 100 mls @ 100 mls/hr IVPB Q8 JEY PRN Reason: Protocol Stop: 07/13/16 09:31 Last Admin: 07/07/16 22:45 Dose: 100 mls/hr Ibuprofen (Motrin Tab) 400 mg PO Q8H [facility] Last Admin: 07/07/16 23:38 Dose: 400 mg Mupirocin (Bactroban Ointment) 0 gm TOP BID [facility] Last Admin: 07/07/16 23:37 Dose: 1 applic Non-Formulary Medication (Calcium) 1 tab PO BID [facility] Last Admin: 07/07/16 17:12 Dose: Not Given Non-Formulary Medication (Fish Oil) 1 tab PO BID [facility] Last Admin: 07/07/16 17:12 Dose: Not Given Non-Formulary Medication (Vitamin B12) 1 tab PO DAILY [facility] Last Admin: 07/07/16 09:54 Dose: Not Given Oxycodone/Acetaminophen (Percocet 10/325 Mg Tab) 1 tab PO Q6H PRN PRN Reason: Pain, severe (8-10) Last Admin: 07/06/16 09:00 Dose: 1 tab Pantoprazole Sodium (Protonix Ec Tab) 40 mg PO BID [facility] Last Admin: 07/07/16 17:13 Dose: 40 mg Polyethylene Glycol (Miralax) 17 gm PO DAILY [facility] Last Admin: 07/07/16 09:53 Dose: 17 gm - Labs Labs: 07/07/16 07:30 07/07/16 07:30 PT 11.0 Seconds (9.9-11.8) 07/05/16 01:50 INR 1.02 (0.93-1.08) 07/05/16 01:50 APTT 27.8 Seconds (23.7-30.8) 07/05/16 01:50 Assessment and Plan - Assessment and Plan (Free Text) Assessment: DX: Phlegmon cellulitis PEG/Abd [id number] drainable abscess) Extensive discussion with multipl family members who concur with conservative measures(IV AB-PPI) Earlier dissatisfaction with temperature results discussed-Plan to continue as pt is improving Consultation done under my direct supervision Zacarias Beckett MD FACS
[2016-07-07] MEDS: FISH OIL PO SCH ×2 (09:52→17:12)
[2016-07-07] MEDS: CALCIUM PO SCH ×2 (09:52→17:12)
[2016-07-07] MEDS: POLYETHYLENE GLYCOL 3350 17 GM/Dose PACKET PO SCH (09:53)
[2016-07-07] MEDS: Vancomycin 1gm in NS 250ml 250 ML IVPB SCH ×2 (09:53→22:48)
[2016-07-07] MEDS: Pantoprazole 40 mg EC Tab PO SCH ×2 (09:53→17:13)
[2016-07-07] MEDS: VITAMIN B12 PO SCH (09:54)
[2016-07-07] MEDS: Meropenem 1g/NS 100mL IVPB 100 ML IVPB SCH ×2 (13:31→22:45)
--- NOTE | 2016-07-07 14:14 | CP.PCM.PN ---
Subjective - Date & Time of Evaluation Date of Evaluation: 07/07/16 Time of Evaluation: 10:10 - Subjective Subjective: Comfortable, not in distress, less pain in the abdomen. Tmax is 100.4 F overnight, which is less than previous days. Objective - Vital Signs/Intake and Output Vital Signs (last 24 hours): Temp Pulse Resp BP Pulse Ox 100.4 F H 77 19 135/82 93 L 07/07/16 08:14 07/07/16 08:14 07/07/16 08:14 07/07/16 08:14 07/07/16 08:14 Intake and Output: 07/07/16 07/07/16 06:59 18:59 Intake Total 0 Output Total 1050 Balance -1050 - Medications Medications: Current Medications Acetaminophen (Tylenol 325mg Tab) 650 mg PO Q4H PRN PRN Reason: Fever >100.5 F Last Admin: 07/07/16 06:15 Dose: 650 mg Apixaban (Eliquis) 5 mg PO BID [facility] PRN Reason: Protocol Last Admin: 07/06/16 17:39 Dose: 5 mg Baclofen (Lioresal) 10 mg PO TID [facility] Last Admin: 07/06/16 17:40 Dose: 10 mg Vancomycin HCl (Vancomycin 1gm) 250 mls @ 167 mls/hr IVPB Q12H [facility] PRN Reason: Protocol Last Admin: 07/06/16 21:37 Dose: 167 mls/hr Meropenem 1g/NS 100mL IVPB (Meropenem 1g/Ns 100ml Ivpb) 100 mls @ 100 mls/hr IVPB Q8 [facility] PRN Reason: Protocol Stop: 07/13/16 09:31 Non-Formulary Medication (Calcium) 1 tab PO BID [facility] Last Admin: 07/06/16 17:39 Dose: Not Given Non-Formulary Medication (Fish Oil) 1 tab PO BID [facility] Last Admin: 07/06/16 17:40 Dose: Not Given Non-Formulary Medication (Vitamin B12) 1 tab PO DAILY [facility] Last Admin: 07/06/16 09:55 Dose: Not Given Oxycodone/Acetaminophen (Percocet 10/325 Mg Tab) 1 tab PO Q6H PRN PRN Reason: Pain, severe (8-10) Last Admin: 07/06/16 09:00 Dose: 1 tab Pantoprazole Sodium (Protonix Ec Tab) 40 mg PO BID [facility] Last Admin: 07/06/16 17:40 Dose: 40 mg Polyethylene Glycol (Miralax) 17 gm PO DAILY [facility] - Labs Labs: 07/07/16 07:30 07/07/16 07:30 PT 11.0 Seconds (9.9-11.8) 07/05/16 01:50 INR 1.02 (0.93-1.08) 07/05/16 01:50 APTT 27.8 Seconds (23.7-30.8) 07/05/16 01:50 - Constitutional Appears: Non-toxic, No Acute Distress - Head Exam Head Exam: NORMAL INSPECTION - Neck Exam Neck Exam: absent: Lymphadenopathy, Meningismus - Respiratory Exam Respiratory Exam: Decreased Breath Sounds. absent: Rales - Cardiovascular Exam Cardiovascular Exam: +S1, +S2 - GI/Abdominal Exam GI & Abdominal Exam: Soft, Tenderness (less in the area of the PEG ) Assessment and Plan - Assessment and Plan (Free Text) Plan: Assessment Sepsis secondary to PEG site cellulitis in a patient with recent insertion of PEG, slowly improving Amyotrophic Lateral sclerosis obesity with BMI 33 Plan continue Vancomycin and Zosyn (day 3); blood cx negative; will continue to monitor clinical response Discussed with Dr. Beckett (surgery) previously Will continue to follow clinically, trend fever curve (improving) and WBC count (improving as well)
--- NOTE | 2016-07-07 21:42 | PN ---
DATE: 07/07/2016 SUBJECTIVE: The patient is a 30-year-old seen and examined, seems to be doing a little better. No c hest pain, no shortness of breath. PHYSICAL EXAMINATION: VITAL SIGNS: The patient spiked fever of 100.4, pulse 77, respirations 19, blood pressure 135/82. LUNGS: Bilateral fair airflow, no rhonchi, or crackle. HEART: S1, S2 audible. No murmur. ABDOMEN: Soft, obese, nontender, no rebound, no guarding. NEUROLOGIC: The patient is awake and alert, able to communicate. Her abdominal wall cellulitis has improved somewhat. His speech is slurred. EXTREMITIES: Bilateral leg, no edema. LABORATORY EXAMINATION: WBC is 12.6, hemoglobin 13.6, hematocrit 40.6, platelet 243. Chemistry: So dium 138, potassium 4.1, chloride 101, CO2 25, BUN 11, creatinine 1.1, blood sugar 116. Blood cultur e and urine cultures are negative. ASSESSMENT AND PLAN: 1. History of amyotrophic lateral sclerosis. 2. History of pulmonary embolism. 3. Abdominal wall cellulitis. 4. Hypertension. PLAN: Currently, the patient is on meropenem. He also complained of constipation probably secondary to narcotics. We will give him a dose of Relistor, magnesium, , keep him on MiraLAX. Discusse d with Dr. Monahan. Discussed with ID. Camryn Rachel MD cc: [phone] TT: 07/07/2016 21:41:59 Confirmation # [id number] Dictation # [id number] ln
[2016-07-08] MEDS ORDERED: Magnesium Citrate Oral SOL (300 ml) PO ONE (00:31)
[2016-07-08] MEDS: Meropenem 1g/NS 100mL IVPB 100 ML IVPB SCH ×3 (06:05→22:43)
[2016-07-08] MEDS: FISH OIL PO SCH ×2 (09:34→17:22)
[2016-07-08] MEDS: CALCIUM PO SCH ×2 (09:34→17:21)
[2016-07-08] MEDS: POLYETHYLENE GLYCOL 3350 17 GM/Dose PACKET PO SCH (09:35)
[2016-07-08] MEDS: Vancomycin 1gm in NS 250ml 250 ML IVPB SCH ×2 (09:36→22:44)
[2016-07-08] MEDS: Pantoprazole 40 mg EC Tab PO SCH ×2 (09:36→17:22)
[2016-07-08 10:49] VITALS: RESP 20
--- NOTE | 2016-07-08 11:46 | CP.PCM.PN ---
Subjective - Date & Time of Evaluation Date of Evaluation: 07/08/16 Time of Evaluation: 09:45 - Subjective Subjective: General Surgery Dr. Beckett Pt S&E sitting in chair. NAEO. Tmax 99.7. no complaints. admits to constipation. denies F/C, N/V. tolerating diet. Objective - Vital Signs/Intake and Output Vital Signs (last 24 hours): Temp Pulse Resp BP Pulse Ox 97.7 F 70 20 129/74 99 07/08/16 10:48 07/08/16 10:48 07/08/16 10:48 07/08/16 10:48 07/08/16 10:48 Intake and Output: 07/08/16 07/08/16 06:59 18:59 Intake Total 1700 Output Total 900 Balance 800 - Medications Medications: Current Medications Acetaminophen (Tylenol 325mg Tab) 650 mg PO Q4H PRN PRN Reason: Fever >100.5 F Last Admin: 07/07/16 06:15 Dose: 650 mg Apixaban (Eliquis) 5 mg PO BID [facility] PRN Reason: Protocol Last Admin: 07/06/16 17:39 Dose: 5 mg Baclofen (Lioresal) 10 mg PO TID [facility] Last Admin: 07/08/16 09:35 Dose: 10 mg Vancomycin HCl (Vancomycin 1gm) 250 mls @ 167 mls/hr IVPB Q12H [facility] PRN Reason: Protocol Last Admin: 07/08/16 09:36 Dose: 167 mls/hr Meropenem 1g/NS 100mL IVPB (Meropenem 1g/Ns 100ml Ivpb) 100 mls @ 100 mls/hr IVPB Q8 [facility] PRN Reason: Protocol Stop: 07/13/16 09:31 Last Admin: 07/08/16 06:05 Dose: 100 mls/hr Ibuprofen (Motrin Tab) 400 mg PO Q8H [facility] Last Admin: 07/08/16 06:23 Dose: Not Given Mupirocin (Bactroban Ointment) 0 gm TOP BID [facility] Last Admin: 07/08/16 09:34 Dose: 1 applic Non-Formulary Medication (Calcium) 1 tab PO BID [facility] Last Admin: 07/08/16 09:34 Dose: Not Given Non-Formulary Medication (Fish Oil) 1 tab PO BID [facility] Last Admin: 07/08/16 09:34 Dose: Not Given Non-Formulary Medication (Vitamin B12) 1 tab PO DAILY [facility] Last Admin: 07/07/16 09:54 Dose: Not Given Oxycodone/Acetaminophen (Percocet 10/325 Mg Tab) 1 tab PO Q6H PRN PRN Reason: Pain, severe (8-10) Last Admin: 07/06/16 09:00 Dose: 1 tab Pantoprazole Sodium (Protonix Ec Tab) 40 mg PO BID [facility] Last Admin: 07/08/16 09:36 Dose: 40 mg Polyethylene Glycol (Miralax) 17 gm PO DAILY [facility] Last Admin: 07/08/16 09:35 Dose: 17 gm - Labs Labs: no new labs - Constitutional Appears: Non-toxic, No Acute Distress - Head Exam Head Exam: NORMAL INSPECTION - Eye Exam Eye Exam: Normal appearance - ENT Exam ENT Exam: Mucous Membranes Moist - Neck Exam Neck Exam: Normal Inspection - Respiratory Exam Respiratory Exam: NORMAL BREATHING PATTERN. absent: Accessory Muscle Use, Respiratory Distress - GI/Abdominal Exam GI & Abdominal Exam: Soft. absent: Distended, Guarding, Tenderness, Rebound Additional comments: PEG tube in place minimal erythema, induration (improved) - Neurological Exam Neurological Exam: Alert, Awake, Oriented x3 - Psychiatric Exam Psychiatric exam: Normal Affect, Normal Mood - Skin Skin Exam: Dry, Intact, Warm Assessment and Plan - Assessment and Plan (Free Text) Assessment: 30 y/o M w/ cellulitis 2/2 PEG placement @[facility] - improved leukocytosis - cont Abx per ID - cont Protonix BID - cont medical management per Primary - no surgical intervention at this time. Pt discussed w/ Dr. Sujit Luther DO PGY1
--- NOTE | 2016-07-08 12:14 | PN ---
DATE: 07/08/2016 SUBJECTIVE: The patient is 30 years old, seen and examined, ambulatory, had bowel movement this morn ing. Abdominal pain seems to be improving. PHYSICAL EXAMINATION: VITAL SIGNS: He is afebrile, pulse 70, respirations 20, blood pressure 129/74. LUNGS: Bilateral fair airflow. No rhonchi or crackle. HEART: S1, S2 audible. ABDOMEN: Soft. Erythema around the PEG tube is improving. NEUROLOGIC: He is awake and alert, communicative, ambulatory. ASSESSMENT: 1. Abdominal wall cellulitis surrounding percutaneous endoscopic gastrostomy tube that was inserted last week. 2. Amyotrophic lateral sclerosis. 3. History of pulmonary embolism. 4. Leukocytosis, improving. 5. Constipation, improved. PLAN: We will continue the patient on current management. He is getting meropenem, and he is on van comycin. Discussed with Dr. Vides. If the patient if afebrile in the next 24 hours, we might make a discharge plan in a.m. Will continue with Tylenol as needed. Discussed with the patient's who is at the bedside. Camryn Rachel MD cc: [phone] TT: 07/08/2016 12:13:17 Confirmation # [id number] Dictation # [id number] marshal
[2016-07-08] MEDS: VITAMIN B12 PO SCH (17:22)
--- NOTE | 2016-07-08 17:46 | CP.PCM.PN ---
Subjective - Date & Time of Evaluation Date of Evaluation: 07/08/16 Time of Evaluation: 11:15 - Subjective Subjective: Feels better, less pain in the abdomen, not in distress, no fevers this morning. Objective - Vital Signs/Intake and Output Vital Signs (last 24 hours): Temp Pulse Resp BP Pulse Ox 98.0 F 70 19 129/74 97 07/08/16 06:24 07/08/16 06:00 07/08/16 06:00 07/08/16 06:00 07/08/16 06:00 Intake and Output: 07/08/16 07/08/16 06:59 18:59 Intake Total 1700 Output Total 900 Balance 800 - Medications Medications: Current Medications Acetaminophen (Tylenol 325mg Tab) 650 mg PO Q4H PRN PRN Reason: Fever >100.5 F Last Admin: 07/07/16 06:15 Dose: 650 mg Apixaban (Eliquis) 5 mg PO BID [facility] PRN Reason: Protocol Last Admin: 07/06/16 17:39 Dose: 5 mg Baclofen (Lioresal) 10 mg PO TID [facility] Last Admin: 07/08/16 09:35 Dose: 10 mg Vancomycin HCl (Vancomycin 1gm) 250 mls @ 167 mls/hr IVPB Q12H [facility] PRN Reason: Protocol Last Admin: 07/08/16 09:36 Dose: 167 mls/hr Meropenem 1g/NS 100mL IVPB (Meropenem 1g/Ns 100ml Ivpb) 100 mls @ 100 mls/hr IVPB Q8 [facility] PRN Reason: Protocol Stop: 07/13/16 09:31 Last Admin: 07/08/16 06:05 Dose: 100 mls/hr Ibuprofen (Motrin Tab) 400 mg PO Q8H [facility] Last Admin: 07/08/16 06:23 Dose: Not Given Mupirocin (Bactroban Ointment) 0 gm TOP BID [facility] Last Admin: 07/08/16 09:34 Dose: 1 applic Non-Formulary Medication (Calcium) 1 tab PO BID [facility] Last Admin: 07/08/16 09:34 Dose: Not Given Non-Formulary Medication (Fish Oil) 1 tab PO BID [facility] Last Admin: 07/08/16 09:34 Dose: Not Given Non-Formulary Medication (Vitamin B12) 1 tab PO DAILY [facility] Last Admin: 07/07/16 09:54 Dose: Not Given Oxycodone/Acetaminophen (Percocet 10/325 Mg Tab) 1 tab PO Q6H PRN PRN Reason: Pain, severe (8-10) Last Admin: 07/06/16 09:00 Dose: 1 tab Pantoprazole Sodium (Protonix Ec Tab) 40 mg PO BID [facility] Last Admin: 07/08/16 09:36 Dose: 40 mg Polyethylene Glycol (Miralax) 17 gm PO DAILY [facility] Last Admin: 07/08/16 09:35 Dose: 17 gm - Labs Labs: 07/07/16 07:30 07/07/16 07:30 PT 11.0 Seconds (9.9-11.8) 07/05/16 01:50 INR 1.02 (0.93-1.08) 07/05/16 01:50 APTT 27.8 Seconds (23.7-30.8) 07/05/16 01:50 - Constitutional Appears: Non-toxic, No Acute Distress - Head Exam Head Exam: NORMAL INSPECTION - ENT Exam ENT Exam: Mucous Membranes Moist - Neck Exam Neck Exam: absent: Lymphadenopathy, Meningismus - Respiratory Exam Respiratory Exam: Decreased Breath Sounds - Cardiovascular Exam Cardiovascular Exam: +S1, +S2 - GI/Abdominal Exam GI & Abdominal Exam: Soft. absent: Tenderness Additional comments: PEG tube area with decreased induration, no fluctuance Assessment and Plan - Assessment and Plan (Free Text) Plan: Assessment Sepsis secondary to PEG site cellulitis in a patient with recent insertion of PEG, clinically improving Amyotrophic Lateral sclerosis obesity with BMI 33 Plan continue Vancomycin and Zosyn (day 4); blood cx negative; will continue to monitor clinical response Discussed with Dr. Beckett (surgery) previously Will continue to follow clinically, trend fever curve (improving) and WBC count (improving as well); if he continues to be afebrile tomorrow, can consider changing to PO antibiotics
[2016-07-09] MEDS: Meropenem 1g/NS 100mL IVPB 100 ML IVPB SCH (05:34)
[2016-07-09 08:08] LABS: ADD MANUAL DIFF? NO
[2016-07-09 08:15] LABS: BASO # 0.01 K/mm3 (0.0-2.0); BASO % 0.2 % (0.0-3.0); EOS # 0.2 (0.0-0.7); EOS % 2.8 % (1.5-5.0); GRAN # 3.56 (1.4-6.5); GRAN % 62.2 % (50.0-68.0); HEMATOCRIT 40.3 % (42.0-52.0); LYMPH # 1.5 (1.2-3.4); LYMPH % 25.7 % (22.0-35.0); MEAN CORPUSCULAR HEMOGLOBIN 23.2 pg (25.0-35.0); MEAN CORPUSCULAR HGB CONC 32.8 g/dl (31.0-37.0); MEAN PLATELET VOLUME 9.6 fl (7.0-11.0); MONO # 0.5 (0.1-0.6); MONO % 9.1 % (1.0-6.0); PLATELET COUNT 280 10^3/uL (120.0-450.0); RED CELL DISTRIBUTION WIDTH 14.3 % (11.5-14.5); WHITE BLOOD COUNT 5.7 10^3/ul (4.5-11.0)
[2016-07-09 08:41] VITALS: BP 128/89; PULSE 83; TEMP 98.8; O2SAT 97
[2016-07-09] MEDS: Vancomycin 1gm in NS 250ml 250 ML IVPB SCH (10:59)
[2016-07-09] MEDS: Pantoprazole 40 mg EC Tab PO SCH (11:00)
[2016-07-09] MEDS: POLYETHYLENE GLYCOL 3350 17 GM/Dose PACKET PO SCH (11:00)
[2016-07-09] MEDS: FISH OIL PO SCH (11:01)
[2016-07-09] MEDS: VITAMIN B12 PO SCH (11:01)
[2016-07-09] MEDS: CALCIUM PO SCH (11:01)
--- NOTE | 2016-07-09 11:13 | PN ---
DATE: 07/09/2016 The patient seen earlier this morning in room 376, bed 1. Nurse states patient had an uneventful nig ht. No fevers and no diarrhea or constipation. PHYSICAL EXAMINATION: VITAL SIGNS: Temperature is 98, blood pressure is 120/70, respiratory rate 16. HEAD: Unremarkable. NECK: Supple. LUNGS: Have decreased breath sounds. HEART: Normal S1, S2. ABDOMEN: Soft, nontender. LABORATORY EXAMINATION: Reveals a white count of 5.7, hemoglobin of 13, platelets of 280. Chemistri es reveal the BUN of 11, creatinine of 1.1. Procalcitonin is 0.36. Urinalysis is noted to be unrema rkable. Blood cultures, urine cultures are no growth. MRSA screen is not detected. Review of the orders reveals the patient to be on IV vancomycin and meropenem. ASSESSMENT AND PLAN: A 30-year-old with sepsis secondary to percutaneous endoscopic gastrostomy site infection and cellulitis and recent insertion of a percutaneous endoscopic gastrostomy site in a pat ient with amyotrophic lateral sclerosis, on vancomycin and Zosyn day #5 and will follow clinically an d will switch to p.o. antibiotics next 24 hours. Wale Leal MD cc: [phone] TT: 07/09/2016 11:12:43 Confirmation # [id number] Dictation # [id number]
--- NOTE | 2016-07-09 11:36 | CP.PCM.PN ---
Subjective - Date & Time of Evaluation Date of Evaluation: 07/09/16 Time of Evaluation: 11:33 - Subjective Subjective: Surgery for Dr. Beckett Pt s&e. SYLVIA. Denies F/C/N/V/D/CP/SOB. TOlereating diet. Objective - Vital Signs/Intake and Output Vital Signs (last 24 hours): Temp Pulse Resp BP Pulse Ox 98.8 F 83 20 128/89 97 07/09/16 06:00 07/09/16 06:00 07/09/16 06:00 07/09/16 06:00 07/09/16 06:00 Intake and Output: 07/09/16 07/09/16 06:59 18:59 Intake Total 1110 Output Total 525 Balance 585 - Medications Medications: Current Medications Apixaban (Eliquis) 5 mg PO BID [facility] PRN Reason: Protocol Last Admin: 07/06/16 17:39 Dose: 5 mg Baclofen (Lioresal) 10 mg PO TID [facility] Last Admin: 07/08/16 17:22 Dose: 10 mg Vancomycin HCl (Vancomycin 1gm) 250 mls @ 167 mls/hr IVPB Q12H [facility] PRN Reason: Protocol Last Admin: 07/08/16 22:44 Dose: 167 mls/hr Meropenem 1g/NS 100mL IVPB (Meropenem 1g/Ns 100ml Ivpb) 100 mls @ 100 mls/hr IVPB Q8 [facility] PRN Reason: Protocol Stop: 07/13/16 09:31 Last Admin: 07/09/16 05:34 Dose: 100 mls/hr Ibuprofen (Motrin Tab) 400 mg PO Q8H [facility] Last Admin: 07/09/16 05:34 Dose: Not Given Mupirocin (Bactroban Ointment) 0 gm TOP BID [facility] Last Admin: 07/08/16 17:21 Dose: 1 applic Non-Formulary Medication (Calcium) 1 tab PO BID [facility] Last Admin: 07/08/16 17:21 Dose: Not Given Non-Formulary Medication (Fish Oil) 1 tab PO BID [facility] Last Admin: 07/08/16 17:22 Dose: Not Given Non-Formulary Medication (Vitamin B12) 1 tab PO DAILY [facility] Last Admin: 07/08/16 17:22 Dose: Not Given Oxycodone/Acetaminophen (Percocet 10/325 Mg Tab) 1 tab PO Q6H PRN PRN Reason: Pain, severe (8-10) Last Admin: 07/06/16 09:00 Dose: 1 tab Pantoprazole Sodium (Protonix Ec Tab) 40 mg PO BID [facility] Last Admin: 07/08/16 17:22 Dose: 40 mg Polyethylene Glycol (Miralax) 17 gm PO DAILY [facility] Last Admin: 07/08/16 09:35 Dose: 17 gm - Labs Labs: 07/09/16 08:06 07/07/16 07:30 PT 11.0 Seconds (9.9-11.8) 07/05/16 01:50 INR 1.02 (0.93-1.08) 07/05/16 01:50 APTT 27.8 Seconds (23.7-30.8) 07/05/16 01:50 - Constitutional Appears: Well, No Acute Distress - Head Exam Head Exam: ATRAUMATIC, NORMAL INSPECTION, NORMOCEPHALIC - Eye Exam Eye Exam: EOMI, Normal appearance, PERRL Pupil Exam: NORMAL ACCOMODATION, PERRL - ENT Exam ENT Exam: Mucous Membranes Moist, Normal Exam - Neck Exam Neck Exam: Full ROM, Normal Inspection. absent: Lymphadenopathy - Respiratory Exam Respiratory Exam: Clear to Ausculation Bilateral, NORMAL BREATHING PATTERN - Cardiovascular Exam Cardiovascular Exam: REGULAR RHYTHM, +S1, +S2. absent: Murmur - GI/Abdominal Exam GI & Abdominal Exam: Soft, Normal Bowel Sounds. absent: Distended, Firm, Guarding, Rigid, Tenderness Additional comments: PEG intact. Mild erythema. - Extremities Exam Extremities Exam: Full ROM, Normal Capillary Refill, Normal Inspection. absent : Joint Swelling, Pedal Edema - Neurological Exam Neurological Exam: Alert, Awake, CN II-XII Intact, Normal Gait, Oriented x3 - Psychiatric Exam Psychiatric exam: Normal Affect, Normal Mood - Skin Skin Exam: Dry, Intact, Normal Color, Warm Assessment and Plan - Assessment and Plan (Free Text) Assessment: 30 y/o M w/ cellulitis 2/2 PEG placement @[facility] - cont Abx per ID - cont Protonix BID - cont medical management per Primary - no surgical intervention at this time. Pt discussed w/ Dr. Beckett
[2016-07-09] MEDS ORDERED: Cefpodoxime (Vantin) 200 mg Tab PO SCH (22:00)
--- NOTE | 2016-07-10 01:31 | DS ---
DATE OF DISCHARGE: 07/09/2016. DISCHARGE DIAGNOSES: 1. Abdominal wall cellulitis. 2. History of amyotrophic lateral sclerosis. 3. Leukocytosis. 4. Hypercoagulable state. 5. Bilateral pulmonary embolism. HOSPITAL COURSE: The patient is a 30-year-old male admitted to the hospital with abdominal wall cell ulitis. He had a PEG tube placed. He was recently diagnosed with amyotrophic lateral sclerosis. He was treated with IV antibiotics. ID help desk consultant, Dr. Leal followed during the hospitalization. He is on Eliquis for anticoagulation for bilateral pulmonary embolism. He has hypercoagulable stat e. He also had leukocytosis during admission and anemia. Leukocytosis resolved with IV antibiotics. He has chronic anemia, multifactorial. He is currently discharged in stable condition. He has bee n afebrile for past 24 hours. PHYSICAL EXAMINATION: GENERAL: On discharge, comfortable in chair, in no acute distress. VITAL SIGNS: Temperature 98.6, heart rate is 80 per minute, blood pressure 120/70. HEENT: Normal. CHEST: Air entry present, equal bilateral. No added sound. CARDIOVASCULAR: Within normal limits. S1, S2 normal. No murmur, no gallop. ABDOMEN: Soft, nontender. PEG site induration improved. NEUROLOGIC: Awake, alert, oriented, communicative. No focal sensorimotor deficit. SKIN: No petechia, no rash. MUSCULOSKELETAL: Spine normal, gait normal, lymphadenopathy none. LABS ON DISCHARGE: White count 5.7, hemoglobin 13.2, hematocrit 40.3, platelet count 280. Sodium 13 8, potassium 4.1, creatinine 1.1. DISCHARGE MEDICATIONS: Eliquis 5 mg p.o. b.i.d., baclofen 10 mg p.o. t.i.d., Vantin 200 mg p.o. ever y 12 hours, doxy 100 mg every 12 hours, Motrin 400 every 8 hours p.r.n., vitamin B12 1 mg daily. Gigi troban ointment local application. CONDITION ON DISCHARGE: Stable. DISPOSITION: Discharged home. prescriptions given for the medications. PEG tube feeding as p er prescription. Follow up with Dr. Rachel in 1 week. Activity as tolerated. Discussed with the [facility] nurse. Discussed with the patient, discussed with the patient's . Time spent in preparing this and coordinating care, 45 minutes. María Ramos MD cc: [id number] TT: 07/10/2016 01:31:08 mn
== END 2016-07-09 14:13 | disposition home health service (06) | DRG 393 ==
LOC: ED 23:56 → ERH 07-05 02:53 → 3RSO 07-05 04:11
PROVIDERS: ADMIT Internal Medicine; ATTEND Internal Medicine
DX: K94.22 Gastrostomy infection (principal); A41.9 Sepsis, unspecified organism; G12.21 Amyotrophic lateral sclerosis; D68.59 Other primary thrombophilia; L03.311 Cellulitis of abdominal wall; D64.9 Anemia, unspecified; R47.81 Slurred speech; E66.9 Obesity, unspecified; K59.03 Drug induced constipation; T40.605A Adverse effect of unspecified narcotics, initial encounter; Y83.3 Surgical operation with formation of external stoma as the cause of abnormal reaction of the patient, or of later complication, without mention of misadventure at the time of the procedure; Z68.33 Body mass index [BMI] 33.0-33.9, adult; Z86.711 Personal history of pulmonary embolism; Z79.02 Long term (current) use of antithrombotics/antiplatelets; Z74.01 Bed confinement status